=== PATIENT | female | born 1960 | race Caucasian/White ===

== ENCOUNTER 2020-01-18 08:41 | Emergency (ER) | payer BC ==
[~2020-01-18] VITALS: Ht 162.6 cm; Wt 63.6 kg
[~2020-01-18 08:41] MED LIST: PREDNISONE10 MG PO; no meds
[2020-01-18 10:33] VITALS: BP 115/70
== END 2020-01-18 10:45 | disposition home or self-care (01) | DRG 563 ==
LOC: ED 08:41
DX: S82.002A Unspecified fracture of left patella, initial encounter for closed fracture (principal); M25.571 Pain in right ankle and joints of right foot; F17.200 Nicotine dependence, unspecified, uncomplicated; W01.0XXA Fall on same level from slipping, tripping and stumbling without subsequent striking against object, initial encounter; Y92.009 Unspecified place in unspecified non-institutional (private) residence as the place of occurrence of the external cause
CPT/HCPCS: L1830